=== PATIENT | female | born 1980 | race Caucasian/White ===

== ENCOUNTER 2016-08-04 09:24 | Emergency (ER) | payer SELFPAY ==
[~2016-08-04] VITALS: Ht 152.4 cm; Wt 81.8 kg
[~2016-08-04 09:24] MED LIST: AMOX/K CLAV875 M1 PO; AMOXICILLIN500 MG PO; FIORICET PO; FLEXERIL PO; LORTAB 10-325 M1 TAB PO; LORTAB 1010 MG PO; NAPROSYN500 MG PO; PERCOCET 5/325M1 TAB PO; TESSALON PERLE100 MG PO; TYLENOL # 31 TAB PO
[2016-08-04] MEDS ORDERED: NAPROSYN500 MG PO (11:47)
[2016-08-04] MEDS ORDERED: FLEXERIL PO (11:47)
[2016-08-04 11:58] VITALS: BP 133/79
== END 2016-08-04 11:58 | disposition home or self-care (01) | DRG 948 ==
LOC: ED 09:24
DX: G89.11 Acute pain due to trauma (principal); M54.5 Low back pain

== ENCOUNTER 2016-09-05 21:04 | Emergency (ER) | payer SELFPAY ==
[~2016-09-05] VITALS: Ht 152.4 cm; Wt 84.4 kg
[2016-09-05] MEDS ORDERED: IMITREX25 MG PO (21:14)
[2016-09-05] MEDS ORDERED: FIORICET PO (22:25)
[2016-09-05 23:00] VITALS: BP 137/80
[2016-09-06] MEDS ORDERED: PERCOCET 5/325M1 TAB PO (13:41)
[2016-09-06] MEDS ORDERED: ZOFRAN ODT4 MG PO (13:41)
== END 2016-09-05 23:00 | disposition home or self-care (01) | DRG 103 ==
LOC: ED 21:04
DX: G43.909 Migraine, unspecified, not intractable, without status migrainosus (principal); R11.0 Nausea

== ENCOUNTER 2016-09-06 12:27 | Emergency (ER) | payer SELFPAY ==
[~2016-09-06] VITALS: Ht 152.4 cm; Wt 84.0 kg
[~2016-09-06 12:27] MED LIST changes: +IMITREX25 MG PO
[2016-09-06 13:40] VITALS: BP 134/86
[2016-09-06] MEDS ORDERED: PERCOCET 5/325M1 TAB PO (13:41)
[2016-09-06] MEDS ORDERED: ZOFRAN ODT4 MG PO (13:41)
== END 2016-09-06 13:52 | disposition home or self-care (01) | DRG 103 ==
LOC: ED 12:27
DX: G43.909 Migraine, unspecified, not intractable, without status migrainosus (principal); R11.0 Nausea

== ENCOUNTER 2016-12-28 10:28 | Emergency (ER) | payer OTHER ==
[~2016-12-28] VITALS: Ht 152.4 cm; Wt 90.0 kg
[~2016-12-28 10:28] MED LIST changes: +ZOFRAN ODT4 MG PO
[2016-12-28] MEDS ORDERED: TRAMADOL HYDROC50 MG PO (10:50)
[2016-12-28] MEDS ORDERED: MOTRIN800 MG PO (10:50)
[2016-12-28] MEDS ORDERED: BACTRIM DS1 TAB PO (10:50)
[2016-12-28 10:57] VITALS: BP 142/90
== END 2016-12-28 11:02 | disposition home or self-care (01) | DRG 603 ==
LOC: ED 10:28
PROC: 0H94XZZ Drainage of Neck Skin, External Approach (ICD-10-PCS; principal; 2016-12-28)
DX: L02.11 Cutaneous abscess of neck (principal)

== ENCOUNTER 2017-01-02 22:19 | Emergency (ER) | payer OTHER ==
[~2017-01-02] VITALS: Ht 152.4 cm; Wt 68.0 kg
[~2017-01-02 22:19] MED LIST changes: +BACTRIM DS1 TAB PO; +MOTRIN800 MG PO; +TRAMADOL HYDROC50 MG PO
[2017-01-02] MEDS ORDERED: AMOXICILLIN500 MG PO (23:24)
[2017-01-02] MEDS ORDERED: PERCOCET 5/325M1 TAB PO (23:24)
[2017-01-02 23:45] VITALS: BP 143/87
== END 2017-01-02 23:45 | disposition home or self-care (01) | DRG 603 ==
LOC: ED 22:19
DX: L03.011 Cellulitis of right finger (principal)

== ENCOUNTER 2017-01-05 13:02 | Emergency (ER) | payer OTHER ==
[~2017-01-05] VITALS: Ht 152.4 cm; Wt 90.0 kg
[2017-01-05] MEDS ORDERED: BACTRIM DS1 TAB PO (14:28)
[2017-01-05] MEDS ORDERED: CEPHALEXIN500 MG PO (14:28)
[2017-01-05 14:41] VITALS: BP 159/62
== END 2017-01-05 14:45 | disposition home or self-care (01) | DRG 603 ==
LOC: ED 13:02
DX: L03.012 Cellulitis of left finger (principal)

== ENCOUNTER 2017-01-08 16:56 | Emergency (ER) | payer OTHER ==
[~2017-01-08] VITALS: Ht 152.4 cm; Wt 85.0 kg
[~2017-01-08 16:56] MED LIST changes: +CEPHALEXIN500 MG PO
[2017-01-08] MEDS ORDERED: PERCOCET 5/325M1 TAB PO (17:29)
[2017-01-08 17:36] VITALS: BP 143/89
== END 2017-01-08 17:41 | disposition home or self-care (01) | DRG 556 ==
LOC: ED 16:56
DX: M79.645 Pain in left finger(s) (principal); Z98.890 Other specified postprocedural states

== ENCOUNTER 2017-02-03 13:23 | Emergency (ER) | payer SELFPAY ==
[~2017-02-03] VITALS: Ht 152.4 cm; Wt 82.2 kg
[2017-02-03] MEDS ORDERED: [UNRECOGNIZED DRUG - OTHER] PO (13:33)
[2017-02-03] MEDS ORDERED: SEPTRA4001 PO (13:59)
[2017-02-03 14:18] VITALS: BP 144/92
== END 2017-02-03 14:20 | disposition home or self-care (01) | DRG 603 ==
LOC: ED 13:23
DX: L03.211 Cellulitis of face (principal)

== ENCOUNTER 2017-12-29 20:36 | Emergency (ER) | payer SELFPAY ==
[~2017-12-29] VITALS: Ht 152.4 cm; Wt 84.0 kg
[~2017-12-29 20:36] MED LIST changes: +SEPTRA4001 PO; +[UNRECOGNIZED DRUG - OTHER] PO
[2017-12-29] MEDS ORDERED: NAPROSYN500 MG PO (22:41)
[2017-12-29 22:57] VITALS: BP 128/60
== END 2017-12-29 22:57 | disposition home or self-care (01) | DRG 563 ==
LOC: ED 20:36
DX: S93.401A Sprain of unspecified ligament of right ankle, initial encounter (principal); M25.571 Pain in right ankle and joints of right foot; M25.471 Effusion, right ankle; W17.89XA Other fall from one level to another, initial encounter; X50.1XXA Overexertion from prolonged static or awkward postures, initial encounter; Y93.89 Activity, other specified; Y92.009 Unspecified place in unspecified non-institutional (private) residence as the place of occurrence of the external cause

== ENCOUNTER 2021-03-21 10:39 | Emergency (ER) | payer SELFPAY ==
[~2021-03-21] VITALS: Ht 152.4 cm; Wt 80.0 kg
[2021-03-21 12:16] VITALS: BP 178/76
== END 2021-03-21 12:16 | disposition home or self-care (01) | DRG 179 ==
LOC: ED 10:39
DX: U07.1 COVID-19 (principal)

== ENCOUNTER 2023-08-22 18:15 | Emergency (ER) | payer SELFPAY ==
[~2023-08-22] VITALS: Ht 152.4 cm; Wt 84.8 kg
[2023-08-22 18:29] VITALS: BP 152/94
[2023-08-22 18:30] VITALS: BP 154/88
[2023-08-22] MEDS ORDERED: oxyCODONE 5MG/ ACETAMINOPHEN 325MG TAB PO ONE (18:40)
[2023-08-22] MEDS ORDERED: methylPREDNISolone SODIUM SUCC 125 MG/2 ML SDV IM ONE (18:40)
[2023-08-22] MEDS ORDERED: AMOXICILLIN & POT CLAVULANATE 875 MG/TAB PO ONE (18:40)
[2023-08-22 18:45] VITALS: BP 136/82
[2023-08-22] MEDS ORDERED: MOTRIN800 MG PO (18:52)
[2023-08-22] MEDS ORDERED: AMOX/K CLAV875 M1 PO (18:52)
[2023-08-22 19:00] VITALS: BP 141/76
[2023-08-22 19:15] VITALS: BP 145/84
[2023-08-22 19:30] VITALS: BP 145/84
== END 2023-08-22 19:30 | disposition home or self-care (01) | DRG 159 ==
LOC: ED 18:15
DX: K04.7 Periapical abscess without sinus (principal)